=== PATIENT | female | born 1985 | race Caucasian/White ===

== ENCOUNTER → 2021-10-16 | Outpatient (CLI) | payer OTHER ==
[2021-10-18 04:08] LABS: CHLAMYDIA TRACHOMATIS, NAA Positive (Negative)
== END | disposition home or self-care (01) ==
LOC: LAB SHORT 14:22
PROVIDERS: Advanced Practice Midwife
DX: Z11.3 Encounter for screening for infections with a predominantly sexual mode of transmission (principal)
CPT/HCPCS: 87491; 87591

== ENCOUNTER → 2021-10-16 | Outpatient (CLI) | payer OTHER ==
[2021-10-17 14:22] LABS: Candida species (DNA Probe) Negative (NEGATIVE); G. vaginalis (DNA Probe) Positive (NEGATIVE); T. vaginalis (DNA Probe) Negative (NEGATIVE)
== END | disposition home or self-care (01) ==
LOC: LAB SHORT 15:23
PROVIDERS: Advanced Practice Midwife
DX: N76.0 Acute vaginitis (principal)
CPT/HCPCS: 87480; 87510; 87660

== ENCOUNTER → 2022-03-16 | Outpatient (CLI) | payer OTHER ==
[~2022-03-16] MED LIST: BUME1; Cymbalta20 MG; SPIR25
[2022-03-18 02:07] LABS: CHLAMYDIA TRACHOMATIS, NAA Positive (Negative)
== END | disposition home or self-care (01) ==
LOC: LAB SHORT 12:24
PROVIDERS: Advanced Practice Midwife
DX: Z09 Encounter for follow-up examination after completed treatment for conditions other than malignant neoplasm (principal); Z86.19 Personal history of other infectious and parasitic diseases
CPT/HCPCS: 87491; 87591

== ENCOUNTER 2022-10-04 17:00 | Emergency (ER) | payer OTHER ==
[~2022-10-04] VITALS: Ht 167.6 cm; Wt 97.5 kg
[2022-10-04 17:14] VITALS: BP 123/74
== END 2022-10-04 17:51 | disposition home or self-care (01) ==
LOC: ER 17:00
DX: F10.90 Alcohol use, unspecified, uncomplicated (principal); R45.851 Suicidal ideations; Z88.2 Allergy status to sulfonamides; Z88.1 Allergy status to other antibiotic agents
CPT/HCPCS: 99283

== ENCOUNTER → 2023-03-25 | Outpatient (CLI) | payer OTHER ==
[2023-03-26 10:02] LABS: Candida species (DNA Probe) Positive (NEGATIVE); G. vaginalis (DNA Probe) Positive (NEGATIVE); T. vaginalis (DNA Probe) Negative (NEGATIVE)
== END | disposition home or self-care (01) ==
LOC: LAB SHORT 16:55 → LAB 16:55
PROVIDERS: Advanced Practice Midwife
DX: N76.0 Acute vaginitis (principal)
CPT/HCPCS: 87480; 87510; 87660

== ENCOUNTER → 2023-06-24 | Outpatient (CLI) | payer OTHER ==
[2023-06-25 07:18] LABS: Candida Group, PCR NOT DETECTED (NOT DETECT)
[2023-06-25 07:47] LABS: Bacterial Vaginosis PCR Positive (NEGATIVE); Candida glabrata-krusei, PCR DETECTED (NOT DETECT)
[2023-06-30 11:14] LABS: HPV HIGH RISK BY TMA Detected; HPV SOURCE Cervical
[2023-07-01 12:14] LABS: HPV GENOTYPE 16 BY TMA Not Detected; HPV GENOTYPE 18/45 BY TMA Detected; HPVG SOURCE Cervical
== END | disposition home or self-care (01) ==
LOC: LAB SHORT 18:27 → LAB 18:27
PROVIDERS: Advanced Practice Midwife
DX: Z01.419 Encounter for gynecological examination (general) (routine) without abnormal findings (principal); N76.0 Acute vaginitis
CPT/HCPCS: 87481; 87661; 87801

== ENCOUNTER → 2023-08-22 | Outpatient (CLI) | payer OTHER | LOC: LAB 13:43 → LAB SHORT 13:43 | DX: N39.0 Urinary tract infection, site not specified (principal) | CPT/HCPCS: 84702; 84703; 87077; 87086; 87186 ==

== ENCOUNTER → 2024-07-13 | Outpatient (CLI) | payer OTHER ==
[2024-07-13 15:43] LABS: Bacterial Vaginosis PCR Negative (NEGATIVE); Candida glabrata-krusei, PCR NOT DETECTED (NOT DETECT)
[2024-07-13 15:44] LABS: Candida Group, PCR DETECTED (NOT DETECT)
[2024-07-18 18:50] LABS: C. TRACHOMATIS BY TMA,THINPREP Negative (Negative); N. GONORRHOEAE BY TMA,THINPREP Negative (Negative); SPECIMEN SOURCE Cervical/Vag
== END ==
LOC: LAB SHORT 12:55 → LAB 12:55
PROVIDERS: Advanced Practice Midwife
DX: Z01.419 Encounter for gynecological examination (general) (routine) without abnormal findings (principal); N76.0 Acute vaginitis; Z11.3 Encounter for screening for infections with a predominantly sexual mode of transmission
CPT/HCPCS: 81515; 87491; 87591

== ENCOUNTER 2025-02-06 19:42 | Inpatient (IN) | payer OTHER ==
[~2025-02-06] VITALS: Ht 167.6 cm; Wt 81.5 kg
[~2025-02-06 19:42] MED LIST changes: +BUPR75 PO; +CARV6.25 PO; +METF500 PO
[2025-02-06 20:43] LABS: Beta HCG, Quantitative, Serum <1 mIU/mL (0-3)
[2025-02-06] MEDS ORDERED: NS 1,000 ML BAG IR ONE (21:45)
[2025-02-06] MEDS ORDERED: Ondansetron 4 MG SoluTab SL ONE (22:00)
[2025-02-06] MEDS ORDERED: NS 250 ML IV PRN (23:00)
[2025-02-06 23:17] VITALS: BP 119/80
[2025-02-06] MEDS ORDERED: LORA.5 PO ×2 (23:23)
[2025-02-06] MEDS ORDERED: KETAMINE H100 MG/11 IM ×2 (23:27)
[2025-02-06] MEDS ORDERED: NS 1,000 ML IV SCH (23:55)
[2025-02-06] MEDS ORDERED: FLU VACC TS2025-26(6MOS UP)/PF 45 MCG/0.5 ML SYRINGE IM ONE (23:55)
[2025-02-06] MEDS ORDERED: Metoclopramide HCl 5MG / ML 2ML Vial IV PRN (23:55)
[2025-02-06] MEDS ORDERED: Ondansetron HCl 2 MG / ML 2ML Vial IV PRN (23:55)
[2025-02-07] MEDS ORDERED: Insulin Glargine-Yfgn 100 Unit/mL 3 ML SYR SC SCH
[2025-02-07 00:27] LABS: Magnesium, Blood 2.0 mg/dL (1.6-2.4); Phosphorus, Blood 2.1 mg/dL (2.5-4.9)
--- NOTE | 2025-02-07 01:11 | NUR ---
ORDERED OBTAINED FROM DR. PAGE FOR HUMALOG LOW SLIDING SCALE INSULIN ACHS AND TO ADVANCE DIET TOLERATED TO CONSISTENT CARB DIET.
[2025-02-07] MEDS ORDERED: Pantoprazole Sodium 40 MG Injection IV SCH (01:26)
[2025-02-07 03:57] VITALS: BP 101/72
--- NOTE | 2025-02-07 04:56 | NUR ---
PATIENT ADMITTED DURING SHIFT FOR HYPOKALEMIA. PATIENT A&OX 4, ABLE TO MAKE NEEDS KNOWN. PATIENT STATES SHE HAS BEEN FEELING WEAK-PATIENT EDUCATED TO USE CALL LIGHT FOR ASSISTANCE WHEN GETTING UP. PATIENT RECEIVED IV POTASSIUM NORMAL SALINE RUNNING AT 100 ML/HR. SKIN INTACT. MED REC COMPLETED. PATIENT ON ROOM AIR. BED IN LOW POSITION WITH WHEELS LOCKED. CALL LIGHT WITHIN REACH.
[2025-02-07 05:09] LABS: BASOPHILS ABSOLUTE AUTO 0.06 K/mm3 (0.00-0.23); BASOPHILS PERCENT AUTO 1 % (0-2); EOSINOPHILS ABSOLUTE AUTO 0.00 K/mm3 (0.00-0.68); EOSINOPHILS PERCENT AUTO 0 % (0-6); Hematocrit 37.3 % (33.0-51.0); Hemoglobin 13.8 g/dL (11.5-16.0); IMMATURE GRAN ABSOLUTE AUTO 0.01 K/mm3 (0.00-0.10); IMMATURE GRAN PERCENT AUTO 0 % (0-1); LYMPHOCYTES ABSOLUTE AUTO 3.16 K/mm3 (0.84-5.20); LYMPHOCYTES PERCENT AUTO 42 % (21-46); MONOCYTES ABSOLUTE AUTO 0.57 K/mm3 (0.16-1.47); MONOCYTES PERCENT AUTO 8 % (4-13); Mean Corpuscular HGB Conc 37.0 g/dL (31.5-36.5); Mean Corpuscular Volume 87 fL (80-100); NEUTROPHILS ABSOLUTE AUTO 3.78 K/mm3 (1.96-9.15); NEUTROPHILS PERCENT AUTO 50 % (41-73); NRBC ABSOLUTE 0.00 K/mm3 (0.00-0.02); NRBC Auto 0.0 /100 WBC (0.0-0.2); Platelet Count 162 K/mm3 (150-400); RDW Coefficient Variation 13.7 % (11.7-14.2); RDW Standard Deviation 43.7 fL (35.1-46.3)
[2025-02-07 05:44] LABS: Alanine Aminotransfer (ALT/SGP 25.0 U/L (12-78); Albumin, Blood 3.2 g/dL (3.4-5.0); Albumin/Globulin Ratio 1.1 (0.8-1.8); Anion Gap 9.0 mmol/L (3-11); Aspartate Aminotrans (AST/SGOT 16.0 U/L (12-37); Bilirubin, Total 2.3 mg/dL (0.1-1.0); Blood Urea Nitrogen 6.0 mg/dL (8-24); CO2, Blood 26.0 mmol/L (21-32); Calcium, Blood 8.1 mg/dL (8.5-10.1); Chloride, Blood 104.0 mmol/L (98-108); Creatinine, Blood 0.73 mg/dL (0.40-1.00); Globulin, Blood 2.9 g/dL (2.2-4.0); Glucose, Blood 256.0 mg/dL (70-99); Potassium, Blood 2.5 mmol/L (3.5-5.5); Sodium, Blood 136.0 mmol/L (136-145); Total Protein, Blood 6.1 g/dL (6.4-8.2)
[2025-02-07] MEDS ORDERED: Insulin Human Lispro 100 Units/ML 3ML Syringe SC SCH ×2 (07:30→17:30)
[2025-02-07 09:18] LABS: Source, Urine Clean Catch
[2025-02-07 09:22] LABS: Bilirubin, Urine Neg (Neg); Color, Urine Yellow (P-Yellow); Glucose Qualitative, Urine 3+ (Neg); Ketones, Urine Neg (Neg); Leukocyte Esterase, Urine 1+ (Neg); Protein, Urine 2+ (Neg); Specific Gravity, Urine 1.015 (1.003-1.022); Urobilinogen, Urine 1+ (Normal)
[2025-02-07 09:35] LABS: Red Blood Cells, Urine 0-2 /hpf (0-2); U Amphetamine Screen Not Detected; U Barbiturate Screen Not Detected; U Benzodiazapine Screen DETECTED; U Buprenorphine Screen Not Detected; U Cannabinoids Screen DETECTED; U Cocaine Screen Not Detected; U Methadone Screen Not Detected; U Methamphetamine Screen Not Detected; U Opiates Screen Not Detected; U Oxycodone Screen Not Detected; U Phencyclidine Screen Not Detected
[2025-02-07 13:11] LABS: Anion Gap 9.0 mmol/L (3-11); Blood Urea Nitrogen 5.0 mg/dL (8-24); CO2, Blood 26.0 mmol/L (21-32); Calcium, Blood 8.9 mg/dL (8.5-10.1); Chloride, Blood 102.0 mmol/L (98-108); Creatinine, Blood 0.66 mg/dL (0.40-1.00); Glucose, Blood 270.0 mg/dL (70-99); Potassium, Blood 2.3 mmol/L (3.5-5.5); Sodium, Blood 135.0 mmol/L (136-145)
[2025-02-07] MEDS ORDERED: Potassium Chl 20MEQ/Water100ML 100 ML IV STA (13:25)
[2025-02-07] MEDS ORDERED: Insulin Glargine 100 Unit/ML 3 ML SYR SC ONE (13:30)
[2025-02-07] MEDS ORDERED: Insulin Glargine-Yfgn 100 Unit/mL 3 ML SYR SC ONE (14:25)
[2025-02-07 16:34] VITALS: BP 127/75
[2025-02-07] MEDS ORDERED: Potassium Chloride 10 Meq Tablet SA PO SCH (17:30)
[2025-02-07 19:09] LABS: Anion Gap 7.0 mmol/L (3-11); Blood Urea Nitrogen 6.0 mg/dL (8-24); CO2, Blood 29.0 mmol/L (21-32); Calcium, Blood 8.8 mg/dL (8.5-10.1); Chloride, Blood 103.0 mmol/L (98-108); Creatinine, Blood 0.71 mg/dL (0.40-1.00); Glucose, Blood 169.0 mg/dL (70-99); Potassium, Blood 2.5 mmol/L (3.5-5.5); Sodium, Blood 136.0 mmol/L (136-145)
--- NOTE | 2025-02-07 19:21 | NUR ---
SHIFT SUMMARY PT IS A/OX4. INDEPENDENT IN THE ROOM. PT IS OFTEN ANXIOUS, MEDICATED PER MAR. ON TELE RUNNING NORMAL SINUS RYTHYM. REPLACING POTASSIUM PER MAR. PT IS COOPERATIVE WITH CARE AND CALLS APPROPRIATELY USING THE CALL LIGHT.
[2025-02-07 20:05] VITALS: BP 111/81
[2025-02-08 00:27] VITALS: BP 102/63
[2025-02-08 03:51] VITALS: BP 82/52
[2025-02-08 03:57] VITALS: BP 100/58
--- NOTE | 2025-02-08 04:25 | NUR ---
PATIENT ALERT AND ORIENETED X4, ABLE TO MAKE NEEDS KNOWN. PATIENT ABLE TO TURN SELF IN BED. UP TO BATHROOM INDEPENDENTLY. TRINI ZAMORA NOTIFIED OF PATIENT 2.5 POTASSIUM- 40 MEQ PO POTASSIUM GIVEN AND 40 MEQ OF IV POTASSIUM GIVEN. DR. PAGE NOTIFIED OF PATIENT POTASSIUM 2.9- 40 MEQ OF POTASSIUM GIVEN IV. PATIENT ON ROOM AIR. BED IN LOW POSITION WITH WHEELS LOCKED. CALL LIGHT WITHIN REACH
[2025-02-08 05:29] LABS: BASOPHILS ABSOLUTE AUTO 0.10 K/mm3 (0.00-0.23); BASOPHILS PERCENT AUTO 1 % (0-2); EOSINOPHILS ABSOLUTE AUTO 0.00 K/mm3 (0.00-0.68); EOSINOPHILS PERCENT AUTO 0 % (0-6); Hematocrit 39.1 % (33.0-51.0); Hemoglobin 14.4 g/dL (11.5-16.0); IMMATURE GRAN ABSOLUTE AUTO 0.01 K/mm3 (0.00-0.10); IMMATURE GRAN PERCENT AUTO 0 % (0-1); LYMPHOCYTES ABSOLUTE AUTO 3.21 K/mm3 (0.84-5.20); LYMPHOCYTES PERCENT AUTO 43 % (21-46); MONOCYTES ABSOLUTE AUTO 0.58 K/mm3 (0.16-1.47); MONOCYTES PERCENT AUTO 8 % (4-13); Mean Corpuscular HGB Conc 36.8 g/dL (31.5-36.5); Mean Corpuscular Volume 88 fL (80-100); NEUTROPHILS ABSOLUTE AUTO 3.52 K/mm3 (1.96-9.15); NEUTROPHILS PERCENT AUTO 48 % (41-73); NRBC ABSOLUTE 0.00 K/mm3 (0.00-0.02); NRBC Auto 0.0 /100 WBC (0.0-0.2); Platelet Count 164 K/mm3 (150-400); RDW Coefficient Variation 13.8 % (11.7-14.2); RDW Standard Deviation 43.7 fL (35.1-46.3)
[2025-02-08 06:08] LABS: Alanine Aminotransfer (ALT/SGP 23.0 U/L (12-78); Albumin, Blood 3.2 g/dL (3.4-5.0); Albumin/Globulin Ratio 1.1 (0.8-1.8); Anion Gap 9.0 mmol/L (3-11); Aspartate Aminotrans (AST/SGOT 18.0 U/L (12-37); Bilirubin, Total 2.5 mg/dL (0.1-1.0); Blood Urea Nitrogen 6.0 mg/dL (8-24); CO2, Blood 23.0 mmol/L (21-32); Calcium, Blood 8.6 mg/dL (8.5-10.1); Chloride, Blood 111.0 mmol/L (98-108); Creatinine, Blood 0.68 mg/dL (0.40-1.00); Globulin, Blood 2.8 g/dL (2.2-4.0); Glucose, Blood 117.0 mg/dL (70-99); Magnesium, Blood 2.0 mg/dL (1.6-2.4); Phosphorus, Blood 2.9 mg/dL (2.5-4.9); Potassium, Blood 3.0 mmol/L (3.5-5.5); Sodium, Blood 140.0 mmol/L (136-145); Total Protein, Blood 6.0 g/dL (6.4-8.2)
[2025-02-08 08:02] VITALS: BP 97/63
[2025-02-08] MEDS ORDERED: Insulin Glargine-Yfgn 100 Unit/mL 3 ML SYR SC SCH (09:00)
[2025-02-08] MEDS ORDERED: Potassium Chl 20MEQ/Water100ML 100 ML IV STA (09:10)
[2025-02-08] MEDS ORDERED: SEMGLEE (Y100 UNIT/2 SC ×2 (12:42)
[2025-02-08] MEDS ORDERED: HUMALOG KW100 UNIT/1 SC ×2 (12:44)
[2025-02-08] MEDS ORDERED: POTA10T PO ×2 (12:45)
--- NOTE | 2025-02-08 13:30 | NUR ---
DISCHARGE NOTE: A&OX4 PRIOR TO D/C. DISCHARGE EDUCATION AND DIRECTIONS DISCUSSED WITH PT. IV AND TELE REMOVED. DECLINED STAFF ESCORT OUT OF BUILDING. SPOUSE ASSISTED WITH GATHERING BELONGINGS. MEDICATIONS FAXED TO PHARMACY.
== END 2025-02-08 13:50 | disposition home or self-care (01) | DRG 641 ==
LOC: ER 19:42 → MEDS 19:43
PROVIDERS: Hospitalist; Student in an Organized Health Care Education/Training Program; ADMIT Internal Medicine
DX: E87.6 Hypokalemia (principal); T50.1X5A Adverse effect of loop [high-ceiling] diuretics, initial encounter; E11.43 Type 2 diabetes mellitus with diabetic autonomic (poly)neuropathy; K31.84 Gastroparesis; K70.30 Alcoholic cirrhosis of liver without ascites; F10.21 Alcohol dependence, in remission; R60.0 Localized edema; I10 Essential (primary) hypertension; F41.9 Anxiety disorder, unspecified; E86.0 Dehydration; E83.39 Other disorders of phosphorus metabolism; E11.65 Type 2 diabetes mellitus with hyperglycemia; Z88.8 Allergy status to other drugs, medicaments and biological substances; Z88.2 Allergy status to sulfonamides; Z88.1 Allergy status to other antibiotic agents; Z79.84 Long term (current) use of oral hypoglycemic drugs
CPT/HCPCS: 36415; 80048; 80053; 81001; 82947; 83690; 83735; 83880; 84100; 84132; 84484; 84702; 85025; 87086; 93005; 93010; 93306; 96365; 96366; 96374; 96375; 96376; 99285-25; A9270; G0378; J1815; J2470; J3480; J7030; J7050; J7060

== ENCOUNTER 2025-02-11 13:59 | Emergency (ER) | payer OTHER ==
[~2025-02-11] VITALS: Ht 167.6 cm; Wt 84.8 kg
[~2025-02-11 13:59] MED LIST changes: +HUMALOG KW100 UNIT/1 SC; +KETAMINE H100 MG/11 IM; +LORA.5 PO; +POTA10T PO; +SEMGLEE (Y100 UNIT/2 SC
[2025-02-11] MEDS ORDERED: Potassium Chloride 10 Meq Tablet SA PO ONE (15:20)
[2025-02-11] MEDS ORDERED: Potassium Chl 10MEQ/Water100ML 100 ML IV SCH (15:35)
[2025-02-11] MEDS ORDERED: NS 1,000 ML IV SCH ×2 (16:15→16:20)
[2025-02-11 18:00] VITALS: BP 94/65
[2025-02-11] MEDS ORDERED: CARVEDILOL3.125 MG (18:24)
[2025-02-11] MEDS ORDERED: POT CHLORIDE TAB 20M (18:25)
== END 2025-02-11 19:11 | disposition home or self-care (01) ==
LOC: ER 13:59
DX: E87.6 Hypokalemia (principal); E11.9 Type 2 diabetes mellitus without complications; K70.30 Alcoholic cirrhosis of liver without ascites; Z88.2 Allergy status to sulfonamides; Z88.1 Allergy status to other antibiotic agents; Z88.8 Allergy status to other drugs, medicaments and biological substances; Z79.84 Long term (current) use of oral hypoglycemic drugs; Z79.4 Long term (current) use of insulin; Z79.899 Other long term (current) drug therapy
CPT/HCPCS: 84132; 93005; 93010; 96365; 96366; 99284-25; A9270; J3480; J7030